=== PATIENT | female | born 2000 | race Caucasian/White ===

== ENCOUNTER 2021-08-18 17:39 | Emergency (ER) | payer OTHER ==
[~2021-08-18] VITALS: Ht 160 cm; Wt 65.3 kg
[2021-08-18 17:41] VITALS: BP 155/76
[2021-08-18] MEDS ORDERED: LORAZEPAM 1MG TABLET PO ONE (18:15)
[2021-08-18] MEDS ORDERED: LORAZEPAM 1MG TABLET PO NR (18:30)
== END 2021-08-18 18:30 | disposition home or self-care (01) ==
LOC: ER 17:39
DX: R00.2 Palpitations (principal); R20.0 Anesthesia of skin; R03.0 Elevated blood-pressure reading, without diagnosis of hypertension; F41.9 Anxiety disorder, unspecified; Z86.73 Personal history of transient ischemic attack (TIA), and cerebral infarction without residual deficits
CPT/HCPCS: 93005; 99283